=== PATIENT | female | born 1995 | race Caucasian/White ===

== ENCOUNTER 2017-05-31 15:54 | Outpatient (CLI) | payer BC, MEDICAID ==
[~2017-05-31] VITALS: Ht 154.9 cm; Wt 72.7 kg
[2017-05-31 15:55] VITALS: BP 122/79; PULSE 94; TEMP 98.1
[2017-05-31 16:14] VITALS: BP 122/79; PULSE 94; TEMP 98.1
[2017-05-31] MEDS ORDERED: PRENATAL (16:19)
[2017-05-31] MEDS ORDERED: NATURAL IRON65 MG (16:20)
[2017-05-31 16:43] VITALS: PULSE 78
== END 2017-05-31 16:50 | disposition home or self-care (01) ==
LOC: LDRO 15:54
DX: Z34.03 Encounter for supervision of normal first pregnancy, third trimester (principal); Z3A.40 40 weeks gestation of pregnancy

== ENCOUNTER 2017-06-01 03:13 | Inpatient (IN) | payer BC, MEDICAID ==
[2017-06-01] VITALS (26 sets, daily range): BP systolic 110–136; BP diastolic 56–87; PULSE 77–129; TEMP 97.2–98.7
[~2017-06-01] VITALS: Ht 154.9 cm; Wt 75.0 kg
[~2017-06-01 03:13] MED LIST: NATURAL IRON65 MG; PRENATAL
[2017-06-01 04:20] LABS: BASO % 0.3 % (0.0-2.0); EOS % 0.1 % (0-4.0); GRAN # 9.1 (1.4-6.5); LYMPH # 0.7 (1.2-3.4); MEAN CELL VOLUME 97 fl (80.0-100.0); MEAN CORPUSCULAR HGB CONC 34 g/dl (33.0-37.0); MEAN PLATELET VOLUME 10.7 fl (7.4-10.4); MONO # 0.6 (0.1-0.6); MONO % 5.9 % (1.7-9.3); PLATELET COUNT 113 K/mm3 (130-400); RED BLOOD COUNT 3.57 M/mm3 (4.10-5.30); REDCELL DISTRIBUTION WIDTH-CV 15.3 % (11.5-14.5)
[2017-06-01 04:35] LABS: HEMATOCRIT 34.7 % (37.0-47.0); HEMOGLOBIN 11.7 g/dl (12.5-16.0); MEAN CORPUSCULAR HEMOGLOBIN 33 pg (27.0-31.0)
[2017-06-02 09:44] VITALS: BP 121/64; PULSE 105; TEMP 98.1
[2017-06-02 16:25] VITALS: BP 112/67; PULSE 100; TEMP 98.4
[2017-06-02 20:00] VITALS: BP 102/57; PULSE 96; TEMP 98
[2017-06-03 07:30] VITALS: BP 124/74; PULSE 94; TEMP 98
[2017-06-03] MEDS ORDERED: MOTRIN 800800 MG/TAB PO (08:33)
[2017-06-03] MEDS ORDERED: PERCOCET 325 MG1 TA2 PO (08:33)
== END 2017-06-03 17:45 | disposition home or self-care (01) | DRG 775 ==
LOC: LDRO 03:13 → LDR 03:41 → OB 03:41
PROVIDERS: Obstetrics & Gynecology
PROC: 10E0XZZ Delivery of Products of Conception, External Approach (ICD-10-PCS; principal; 2017-06-01)
PROC: 0UQMXZZ Repair Vulva, External Approach (ICD-10-PCS; 2017-06-01)
DX: O48.0 Post-term pregnancy (principal); O71.82 Other specified trauma to perineum and vulva; O99.02 Anemia complicating childbirth; D64.9 Anemia, unspecified; Z3A.40 40 weeks gestation of pregnancy; Z37.0 Single live birth
CPT/HCPCS: J2590; J7120

== ENCOUNTER 2019-08-19 05:37 | Emergency (ER) | payer SELFPAY ==
[~2019-08-19] VITALS: Ht 154.9 cm; Wt 54.5 kg
[~2019-08-19 05:37] MED LIST changes: +MOTRIN 800800 MG/TAB PO; +PERCOCET 325 MG1 TA2 PO
[2019-08-19 05:40] VITALS: TEMP 98.4
[2019-08-19] MEDS ORDERED: PREDNISONE20 MG PO (06:11)
[2019-08-19] MEDS ORDERED: BENADRYL25 M2 PO (06:11)
[2019-08-19] MEDS ORDERED: PEPCID 20MG TAB20 MG PO (06:11)
[2019-08-19] MEDS ORDERED: ATARAX 10MG10 MG/TAB PO (06:41)
[2019-08-19 08:11] VITALS: BP 105/70; PULSE 70
== END 2019-08-19 08:12 | disposition home or self-care (01) ==
LOC: COL.ER 05:37
DX: T78.40XA Allergy, unspecified, initial encounter (principal)
CPT/HCPCS: J7512

== ENCOUNTER 2021-02-17 00:33 | Emergency (ER) | payer BC ==
[~2021-02-17] VITALS: Ht 154.9 cm; Wt 45.5 kg
[~2021-02-17 00:33] MED LIST changes: +ATARAX 10MG10 MG/TAB PO; +BENADRYL25 M2 PO; +PEPCID 20MG TAB20 MG PO; +PREDNISONE20 MG PO
[2021-02-17] MEDS ORDERED: BACTRIM DS 8001 TAB PO ×2 (01:02)
[2021-02-17 02:10] VITALS: BP 125/78; PULSE 80; TEMP 97.9
== END 2021-02-17 02:11 | disposition home or self-care (01) ==
LOC: COL.ER 00:33
DX: L73.9 Follicular disorder, unspecified (principal); L01.00 Impetigo, unspecified

== ENCOUNTER 2021-02-20 14:23 | Inpatient (IN) | payer BC ==
[~2021-02-20] VITALS: Ht 154.9 cm; Wt 50.4 kg
[~2021-02-20 14:23] MED LIST changes: +BACTRIM DS 8001 TAB PO
[2021-02-20 16:37] LABS: GRAN # 7.5 K/mm3 (1.4-6.5); GRAN % 87.5 % (42.2-75.2); HEMOGLOBIN 12.2 g/dl (12.5-16.0); LYMPH # 0.6 K/mm3 (1.2-3.4); LYMPH % 7.5 % (20.0-51.0); MEAN CELL VOLUME 94 fl (80.0-100.0); MEAN CORPUSCULAR HEMOGLOBIN 31 pg (27.0-31.0); MEAN CORPUSCULAR HGB CONC 34 g/dl (33.0-37.0); MEAN PLATELET VOLUME 9.7 fl (7.4-10.4); MONO # 0.4 K/mm3 (0.1-0.6); MONO % 4.6 % (1.7-9.3); PLATELET COUNT 199 K/mm3 (130-400); RED BLOOD COUNT 3.88 M/mm3 (4.10-5.30); REDCELL DISTRIBUTION WIDTH-CV 13.1 % (11.5-14.5)
[2021-02-20 16:47] LABS: HEMATOCRIT 36.4 % (37.0-47.0)
[2021-02-20 16:50] LABS: ALBUMIN 4.1 gm/dL (3.5-5.0); BILIRUBIN,TOTAL 0.3 mg/dL (0.2-1.2); CALCIUM 9.6 mg/dL (8.4-10.2); CREATININE, serum 0.8 mg/dL (0.57-1.11); POTASSIUM 4.2 mmol/L (3.5-4.5); TOTAL PROTEIN 7.2 gm/dL (6.2-8.1)
[2021-02-20 17:47] VITALS: BP 106/59; PULSE 58; TEMP 97.7
--- NOTE | 2021-02-20 19:30 | NUR ---
Bedside shift report received, assumed care for night club manager. Admission assessment complete. A&Ox4. Oriented to room and policy. VS stable. Denies pain/nausea/shortness of breath. Noted to have scabbed areas to face/neck/bilat arms/chest/abdomen and upper thighs. Admission orders initiated. Plan of care discussed for this shift to include topical ointments/pain management/antibiotics/calling for questions/concerns. Verbalizes understanding/denies needs. Call light in reach. Will monitor.
[2021-02-20 19:42] VITALS: BP 114/55; PULSE 74; TEMP 98.1
[2021-02-21] VITALS (7 sets, daily range): BP systolic 91–113; BP diastolic 46–58; PULSE 55–82; TEMP 97.3–98.1
--- NOTE | 2021-02-21 06:18 | NUR ---
Rested off and on this shift. VS remained stable. Received one dose of morphine through out the night with good pain relief. Cream at bedside. Denies current needs. Call light in reach. Will monitor.
[2021-02-21 07:18] LABS: BASO % 0.1 % (0.0-2.0); GRAN # 6.4 K/mm3 (1.4-6.5); GRAN % 78.4 % (42.2-75.2); HEMOGLOBIN 10.8 g/dl (12.5-16.0); LYMPH % 11.9 % (20.0-51.0); MEAN CELL VOLUME 96 fl (80.0-100.0); MEAN CORPUSCULAR HEMOGLOBIN 33 pg (27.0-31.0); MEAN CORPUSCULAR HGB CONC 34 g/dl (33.0-37.0); MEAN PLATELET VOLUME 10.2 fl (7.4-10.4); MONO # 0.7 K/mm3 (0.1-0.6); MONO % 9.1 % (1.7-9.3); PLATELET COUNT 181 K/mm3 (130-400); RED BLOOD COUNT 3.32 M/mm3 (4.10-5.30); REDCELL DISTRIBUTION WIDTH-CV 12.9 % (11.5-14.5)
[2021-02-21 07:19] LABS: HEMATOCRIT 31.8 % (37.0-47.0)
[2021-02-21 07:23] LABS: C-REACTIVE PROTEIN 0.14 mg/dL (0.00-0.50); CALCIUM 8.5 mg/dL (8.4-10.2); CREATININE, serum 0.64 mg/dL (0.57-1.11); MAGNESIUM 2.1 mg/dL (1.6-2.6); POTASSIUM 4.5 mmol/L (3.5-4.5)
[2021-02-21 08:20] LABS: HIV 1/2 Antibodies Non-Reactive; HIV-1p24 Antigen Non-Reactive
--- NOTE | 2021-02-21 09:54 | NUR ---
social welfare research worker met with patient to discuss discharge plan. Patient lives at home with her young daughter in [facility]. 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 PCP is Dr. Maza and she utilizes [facility] for perscriptions with no cost difficulties. Patient reports to not having a DPOA-HC. Provided education to the patient and she is not interested in filling a form out but verbalizes that it would be her mother Daja ([phone]). Discharge plan: Home
--- NOTE | 2021-02-21 18:20 | NUR ---
Pt has mild discomfort and itching to neck. Pain well controlled with PRN pain medications. No needs at this time.
--- NOTE | 2021-02-21 19:30 | NUR ---
Report received, assumed care for awake overnight monitor. Assessment complete. A&Ox4. Denies nausea/shortness of breath. Rating pain 3/10-described as headache. States she is going to eat and see if that helps. States she doesnt want to take any pain medications at this time. Noted to have crusting rash to face/arms/neck/upper thighs. Plan of care discussed for this shift to include meds/pain control/calling for questions/concerns. Verbalizes understanding/denies needs. Call light in reach. Will monitor.
--- NOTE | 2021-02-22 | NUR ---
Called with c/o pain-states "Ijust cant get comfortable to sleep due to the burning." Discussed pain med options-states the norco caused her to be nauseas. Rating pain 8/10 to areas affected by rash. Morphine given per dr order at this time. Will monitor.
[2021-02-22 03:13] VITALS: BP 100/49; PULSE 69; TEMP 97.5
[2021-02-22 08:37] VITALS: BP 93/53; PULSE 52; TEMP 98.1
[2021-02-22 12:06] VITALS: BP 102/59; PULSE 63; TEMP 98.2
[2021-02-22 15:57] VITALS: BP 104/55; PULSE 72; TEMP 97.8
--- NOTE | 2021-02-22 17:27 | NUR ---
Patient took a shower today. C/o pain where lesions are present and received a PRN norco. Patient independent and calls when anything is needed.
[2021-02-22 20:26] VITALS: BP 107/53; PULSE 84; TEMP 97.7
[2021-02-23 01:50] VITALS: BP 98/56; PULSE 68; TEMP 97.8
[2021-02-23 04:00] VITALS: BP 96/48; PULSE 68; TEMP 97.8
[2021-02-23 08:23] VITALS: BP 104/51; PULSE 68; TEMP 98
--- NOTE | 2021-02-23 09:56 | NUR ---
Pt sleeping upon entry, easily awakened. No C/O pain at this time. Shift assessment complete, left Pt call light in reach, bed in lowest position.
[2021-02-23 12:18] VITALS: BP 107/52; PULSE 63; TEMP 97.9
[2021-02-23 16:12] VITALS: BP 110/60; PULSE 73; TEMP 98
--- NOTE | 2021-02-23 19:50 | NUR ---
Bedside shift report received, assumed care for retail shift manager. Assessment complete. A&Ox4. Denies nausea/shortness of breath. C/O headache-rating pain 7/10 on pain scale-tylenol given per request. Also c/o pain to IV site. Noted to bed red with a small amount of edema. DCd at this time-cath intact. Rash to face/chest/abdomen/arms appears smaller today-more crusting noted. Plan of care discussed for this shift to include meds/calling for questions/concerns. Verbalizes understanding. Call light in reach. Will monitor.
--- NOTE | 2021-02-23 19:50 | NUR ---
Spoke to KELLY Donahue-hospitalist because IV to left forearm infiltrated during the last 25mls of acyclovir dose. Patient states that she has had at least six IVs-ten attempts since admission on 02/20. States she should be discharged in AM and would like to see if she can have her antibiotics changed to PO tonight. New orders received and initiated.
[2021-02-23 20:05] VITALS: BP 108/57; PULSE 71; TEMP 97.9
[2021-02-24 00:18] VITALS: BP 107/58; PULSE 64; TEMP 97.5
[2021-02-24 03:11] VITALS: BP 127/53; PULSE 76; TEMP 97.5
--- NOTE | 2021-02-24 06:29 | NUR ---
Slept well this shift. Received tylenol for a headache but otherwise no c/o this shift. No IV access and has been switched to PO antibiotics. VS remained stable. Call light in reach.
[2021-02-24 08:12] VITALS: BP 102/53; PULSE 71; TEMP 98.1
[2021-02-24] MEDS ORDERED: MONODOX100 PO (08:35)
[2021-02-24] MEDS ORDERED: VALTREX1 GM PO (08:35)
[2021-02-24] MEDS ORDERED: PREDNISONE10 MG PO (08:40)
[2021-02-24] MEDS ORDERED: TRIAM OI 0.1 80 TOP (08:43)
--- NOTE | 2021-02-24 08:55 | NUR ---
Pt awake upon entry, no C/O pain at this time. Shift assessment complete, left Pt call light in reach, bed in lowest position.
--- NOTE | 2021-02-24 10:33 | NUR ---
Pt discharged to home, discussed discharge instructions with Pt. Escorted Pt to entrance, Pt left with friend via private auto.
== END 2021-02-24 10:34 | disposition home or self-care (01) | DRG 607 ==
LOC: COL.ER 14:23 → MEDICAL 15:36
PROVIDERS: Personal Emergency Response Attendant; Physician Assistant; ADMIT Internal Medicine
DX: B00.0 Eczema herpeticum (principal); F41.9 Anxiety disorder, unspecified
CPT/HCPCS: 99223-AI; 99232-AI; 99233-AI; 99239; J0133; J0696; J1650; J2270; J2930; J3370; J7050; J7512